=== PATIENT | female | born 1940 | race Two or more races ===

== ENCOUNTER 2020-04-18 06:59 | Day surgery (SDC) | payer MEDICARE ==
[2020-04-18] VITALS (11 sets, daily range): BP systolic 57–140; BP diastolic 55–76
[~2020-04-18] VITALS: Ht 154.9 cm; Wt 54.4 kg
[2020-04-18] MEDS ORDERED: cefOXitin Sod 1 GM in D5W 55 ML IVPB ONE (07:00)
[2020-04-18] MEDS ORDERED: CRESTOR20 MG ORAL (07:38)
[2020-04-18] MEDS ORDERED: AMLODIPINE BESYL5 MG ORAL (07:38)
[2020-04-18] MEDS ORDERED: LEVOTHYROXINE75 MCG ORAL (07:38)
[2020-04-18] MEDS ORDERED: LISINOPRIL10 MG ORAL (07:38)
[2020-04-18] MEDS ORDERED: fentaNYL 100 mcg/2 mL IV ONE (09:32)
[2020-04-18] MEDS ORDERED: Lidocaine 1% MPF 10mg/ml 5ml ONE (09:37)
--- NOTE | 2020-04-18 10:49 | Pre-Procedure Note/Attestation ---
Pre-Procedure Note/Attestation Complete Prior to Procedure Planned Procedure: not applicable Procedure Narrative: D&C, Hysteroscopy, possible polypectomy Indications for Procedure Pre-Operative Diagnosis: Endometrial mass on ultrasound Attestation I attest that I discussed the nature of the procedure; its benefits; risks and complications; and alternatives (and the risks and benefits of such alternatives ), prior to the procedure, with the patient (or the patient's legal passenger relations representative). I attest that, if there was a reasonable possibility of needing a blood transfusion, the patient (or the patient's legal passenger relations representative) was given the [facility] standardized written summary, pursuant to the [place] Blood Safety Act ([place] Health and Safety Code # 1645, as amended). I attest that I re-evaluated the patient just prior to the surgery and that there has been no change in the patient's H&P, except as documented below: Geovanny Hernandez MD Apr 18, 2020 10:49
[2020-04-18] MEDS ORDERED: NS Irrig 1000ml IRRIG ONE ×2 (10:51→11:16)
[2020-04-18] MEDS ORDERED: LR 1000ml ONE (11:00)
[2020-04-18] MEDS ORDERED: Sterile Water Irrig 1000ml IRRIG ONE (11:00)
[2020-04-18] MEDS ORDERED: Silver Nitrate Stick TOPIC ONE (11:04)
[2020-04-18] MEDS ORDERED: LR 1000ml 1,000 ML IVLG SCH (11:06)
--- NOTE | 2020-04-18 11:06 | Anethesia Preoperative Eval ---
Anesthesia Pre-op PMH/ROS General Date of Evaluation: Apr 18, 2020 Time of Evaluation: 10:32 Anesthesiologist: Josue ASA Score: ASA 2 Mallampati Score Class I : Soft palate, uvula, fauces, pillars visible Class II: Soft palate, uvula, fauces visible Class III: Soft palate, base of uvula visible Class IV: Only hard plate visible Mallampati Classification: Class II Surgeon: Mary Diagnosis: Postmenopausal bleeding Surgical Procedure: D&C Hysteroscopy Anesthesia History: none Social History: smoking - h/o Family History: no anesthesia problems Allergies: Coded Allergies: No Known Allergies (Unverified , 04/17/20) Medications: see eMAR Patient NPO?: Yes Past Medical History Cardiovascular: Reports: HTN; Denies: CAD, [place], valve dz, arrhythmia, other Pulmonary: Denies: asthma, COPD, TRI, other Gastrointestinal/Genitourinary: Reports: GERD - mild; Denies: CRI, ESRD, other Neurologic/Psychiatric: Denies: dementia, CVA, depression/anxiety, TIA, other Endocrine: Reports: hypothyroidism; Denies: DM, steroids, other HEENT: Denies: cataract (L), cataract (R), glaucoma, SNOQUALMIE (L), SNOQUALMIE (R), other Hematology/Immune: Denies: anemia, DVT, bleeding disorder, other Musculoskeletal/Integumentary: Reports: OA; Denies: RA, DJD, DDD, edema, other PMH Narrative: as above PSxH Narrative: T&A, Anesthesia Pre-op Phys. Exam Physician Exam Last Vital Signs Date Time Temp Pulse Resp B/P (MAP) Pulse Ox O2 Delivery O2 Flow Rate FiO2 04/18/20 07:30 Room Air 04/18/20 07:22 97.7 62 18 140/74 96 Constitutional: NAD Neurologic: CN 2-12 intact Cardiovascular: RRR, no M/R/G Respiratory: CTA Gastrointestinal: S/NT/ND Airway Exam Mallampati Score: Class II MO: full Neck: stiff ROM: limited Teeth: intact Dentures: no upper, no lower Anesthesia Pre-op A/P Labs see chart Studies Pre-op Studies: EKG - NSR Risk Assessment & Plan Assessment: ASA 2 Plan: GA with LMA Status Change Before Surgery: No Pre-Antibiotics Drug: Ancef 1gr Given Within 1 Hr of Incision: Yes Time Given: 10:52 Quique Salas MD Apr 18, 2020 11:06
[2020-04-18] MEDS ORDERED: Ketorolac 30mg Inj IV PRN (11:15)
[2020-04-18] MEDS ORDERED: Hydromorphone 0.5mg/0.5ml inj IVP PRN (11:15)
--- NOTE | 2020-04-18 11:38 | Brief Operative Note ---
Immediate Post Operative Note Operative Note Pre-op Diagnosis: Endometrial mass on ultrasound Procedure: D&C, Hysteroscopy, Endometrial biopsy, Endocervical biopsy, Endocervical mass biopsy Findings: consistent w/pre-op dx studies Anesthesia: general Specimen: yes - ECC, EMB, Endocerv Mass Complications: none Condition: stable Fluids: 0.5 NL saline @ TKO Estimated Blood Loss: minimal - 50 ml Drains: none Implant(s) used?: No Geovanny Hernandez MD Apr 18, 2020 11:38
[2020-04-18] MEDS ORDERED: HYDROcodone/Acetamin 5/325 tab ORAL PRN (11:45)
--- NOTE | 2020-04-18 11:47 | Immediate Post-Op Evaluation ---
Immediate Post-Op Evalulation Immediate Post-Op Evalulation Procedure: D&C Hysteroscopy Date of Evaluation: Apr 18, 2020 Time of Evaluation: 11:46 IV Fluids: 800 Blood Products: none Estimated Blood Loss: min Urinary Output: n/a Blood Pressure Systolic: 123 Blood Pressure Diastolic: 67 Pulse Rate: 62 Respiratory Rate: 20 O2 Sat by Pulse Oximetry: 99 Temperature (Fahrenheit): 97.6 Pain Score (1-10): 1 Nausea: No Vomiting: No Complications none Patient Status: awake, patent, none Hydration Status: adequate Quique Salas MD Apr 18, 2020 11:47
--- NOTE | 2020-04-18 13:25 | 48 Hour Post Anesthesia Eval ---
Post Anesthesia Evaluation Procedure: D&C Hysteroscopy Date of Evaluation: Apr 18, 2020 Time of Evaluation: 13:23 Blood Pressure Systolic: 132 0: 76 Pulse Rate: 58 Respiratory Rate: 20 Temperature (Fahrenheit): 97.6 O2 Sat by Pulse Oximetry: 99 Airway: patent Nausea: No Vomiting: No Pain Intensity: 2 Hydration Status: adequate Cardiopulmonary Status: stable Mental Status/LOC: patient returned to baseline Follow-up Care/Observations: n/a Post-Anesthesia Complications: none Follow-up care needed: ready to discharge Quique Salas MD Apr 18, 2020 13:25
--- NOTE | 2020-04-18 13:30 | Operative Note - Dictated ---
DATE OF OPERATION: 04/18/2020 PREOPERATIVE DIAGNOSES: Endometrial thickening and postmenopausal bleeding. POSTOPERATIVE DIAGNOSES: Endometrial thickening and postmenopausal bleeding plus endocervical mass. PROCEDURE PERFORMED: Video hysteroscopy with extensive cervical dilatation, endometrial curettage, endocervical curettage, and biopsy of the endocervical mass. SURGEON: Geovanny Hernandez MD. ANESTHESIOLOGIST: Quique Salas MD. ANESTHESIA: General LMA. PROCEDURE IN DETAIL: After all the appropriate consents were signed, the patient was brought to the operating room and placed on the table in supine position. General anesthesia was induced without complication. The patient was then placed in a dorsal lithotomy position. Perineum, vagina and abdomen were prepped and draped in the usual fashion for the procedure. The vagina contained a pessary, which was removed. Followed removal of the pessary, the cervix was identified and the vaginal area was re-prepped. The cervix was then grasped and with some difficulty, the cervical os was identified and dilated. At the cervical os, there appeared to be deeply in the cervical os, there appeared to be a very firm mass-like structure, which possibly represents an old myoma. This procedure then continued with video hysteroscopy, which followed the dilatation of the cervix. Hysteroscopy revealed a dry atrophic endometrial cavity. No polypoid areas were identified. No submucosal fibroids was also identified. At this time, the photographs were taken and the endometrial curettage and endocervical curettage were performed and once that was completed, the endocervical mass was then grasped and using an 11 blade was excised with traction-countertraction technique. Most of that mass was excised and submitted to pathology for evaluation. At that time, complete hemostasis was achieved with cautery and instruments were removed from the vagina. The patient was then placed back in the supine position and awakened from general anesthesia. The pessary was sent with the patient to recovery room. The patient tolerated the procedure very well. Geovanny Hernandez M.D. DR: FABBY JOB#: [id number] CC:
[2020-04-18] MEDS ORDERED: D5 1/2NS 1,000 ML IV SCH (16:00)
== END 2020-04-18 13:45 | disposition home or self-care (01) ==
LOC: SUR 06:59
DX: N95.0 Postmenopausal bleeding (principal); N87.9 Dysplasia of cervix uteri, unspecified
CPT/HCPCS: 58558; 94003; J0690; J1885; J3010; J7120; U0002; 94150